=== PATIENT | male | born 1990 | race Caucasian/White ===

== ENCOUNTER 2019-01-13 14:18 | Emergency (ER) | payer OTHER, SELFPAY ==
[2019-01-13 14:28] VITALS: BP 100/57; PULSE 82; RESP 18; TEMP 36.7; O2SAT 98; BMI 22.0
--- NOTE | 2019-01-13 15:58 | ED.BACK ---
HPI - Back Pain/Injury General Chief Complaint: Back Pain/Injury Stated Complaint: hurt back at work Time Seen by Provider: 01/13/19 15:24 Source: patient Mode of arrival: ambulatory Limitations: no limitations History of Present Illness HPI Narrative: This is a 28-year-old male who comes to the emergency department with complaint of back pain patient states it started yesterday. Patient works installing insulation and he states he was picking up a bag of insulation lift it twisted and then felt pain in his midthoracic back. Patient states the bags way about 35 lb he states that he does this frequently and very repetitive motion. He has had some back discomfort in the past but this is worse than normal. Patient states that he tried some ibuprofen at home without resolution of symptoms. He states the pain sort of radiates around to the front and he still very tight and spasm me in his muscles particularly in the chest and side. Patient states movement particularly rotation is worse. He has not had any fevers, no cold cough or congestion. It is painful for her to take a deep inspiration. He has felt a little nauseated with pain has strong. No vomiting, no other diarrhea or constipation, no black or bloody stools. No urinary or fecal incontinence. No numbness, weakness or tingling in his extremities. Patient states he is otherwise healthy, denies any prior surgeries. No allergies to medications. Related Data Previous Rx's Medication Instructions Recorded diazepam [Valium] 2 mg PO TID-QID PRN #5 tab 01/13/19 meloxicam [Mobic] 7.5 mg PO BID #14 tab 01/13/19 Allergies Allergy/AdvReac Type Severity Reaction Status Date / Time No Known Drug Allergies Allergy Verified 01/13/19 14:32 Review of Systems Review of Systems ROS Unobtainable: All systems reviewed & are unremarkable except as noted in HPI and below Constitutional Denies body ache(s), Denies chills and Denies fever(s) Cardiovascular Denies chest pain, Denies edema, Denies dyspnea and Denies dyspnea on exertion Respiratory Denies chest congestion, Denies cough, Denies hemoptysis, Denies excessive phlegm production, Reports pain on inspiration, Denies pain with cough, Denies dyspnea, Denies dyspnea on exertion and Denies wheezing Gastrointestinal Gastrointestinal: Denies abdominal pain, Denies change in bowel habits, Denies fecal incontinence, Denies diarrhea, Reports nausea (With severe pain) and Denies vomiting Genitourinary Denies flank pain, Denies urinary frequency, Denies urinary incontinence and Denies urinary urgency Musculoskeletal Denies abnormal gait, Reports back pain (Thoracic), Denies muscle weakness, Denies numbness, Denies radiating pain into limb, Reports stiffness and Denies tingling Integumentary/Breasts Denies erythema and Denies rash Neurologic Denies abnormal gait, Denies numbness and Denies tingling Allergic/Immunologic Denies wheezing PFSH Social History Smoking Status: Current every day smoker Social History Smoking Status: Current every day smoker substance use type: does not use Exam Narrative Exam Narrative: GENERAL: Alert and oriented x three, thin, well-appearing male in mild distress. HEENT: Head normocephalic, atraumatic, EOMI, pupils reactive, face symmetric, moist mucous membranes NECK: Supple, full range of motion CARDIOVASCULAR: Regular rate and rhythm without murmurs, rubs or gallops. RESPIRATORY: Breath sounds equal bilaterally, no wheezes rales or rhonchi. ABDOMEN: Soft, nontender. Normoactive bowel sounds all 4 quadrants. No guarding or rebound, rigidity, no mass : No CVA tenderness BACK: No cervical, thoracic or lumbar vertebral point tenderness. Patient has some muscle spasm and tenderness radiating from the upper thoracic and around. No rashes or skin changes. Patient has normal range of motion, slightly decreased with rotation. Patient's gait is normal. Rectal exam is deferred. Muscle strength is 5/5 in lower extremities, 5/5 muscle strength in upper and lower extremities. EXTREMITIES: Normal range of motion, no clubbing or edema. Neurovascularly intact NEUROLOGICAL: Cranial nerves II through XII grossly intact. Moving all extremities SKIN: Warm, dry, no petechiae, no rashes or lesions. Initial Vital Signs Initial Vital Signs: Vital Signs Temperature 98.1 F 01/13/19 14:28 Pulse Rate 82 01/13/19 14:28 Respiratory Rate 18 01/13/19 14:28 Blood Pressure 100/57 L 01/13/19 14:28 Pulse Oximetry 98 01/13/19 14:28 Course Orders Ordered: Discontinued Medications Ketorolac Tromethamine (Toradol) 60 mg IM NOW ONE Stop: 01/13/19 16:26 Last Admin: 01/13/19 16:34 Dose: 60 mg Vital Signs - 8 hr 01/13/19 14:28 01/13/19 16:48 Temperature 98.1 F 98.3 F Pulse Rate 82 63 Respiratory Rate 18 18 Blood Pressure 100/57 L Blood Pressure [Right Arm] 106/56 L Pulse Oximetry 98 99 MDM - Back Pain/Injury MDM Narrative Medical decision making narrative: Patient does not have any red flag symptoms. Has a clear exacerbating factor that is the likely cause of his back pain. Plan for rest, NSAIDs, muscle relaxant as needed and re-evaluation as needed. Discussed with patient's signs and symptoms to watch for reasons to return Discharge Plan Departure Patient Disposition: Home Clinical Impression: Back pain, thoracic Qualifiers: Chronicity: acute Back pain laterality: right Qualified Code(s): M54.6 - Pain in thoracic spine Discharge Date/Time: 01/13/19 16:52 Interventions: ED Discharge Assessment Last Done: 01/13/19 16:52 Instructions: DI for Thoracic Back Pain Activity Restrictions/Additional Instructions: Follow-up in the next 5-7 days if your symptoms are not improving. Continue Mobic every 12 hr as needed for pain. You may take Tylenol up to a 1000 mg every 8 hr as needed. Take Valium 1 tablet every 6-8 hours as needed for muscle spasm. This medication can make you sleepy so do not drive, perform hazards activities or make any major decisions while taking it. Return to the emergency department for fevers greater than 100.4, rapidly worsening pain, new weakness, numbness, loss of bowel or bladder control, persistent vomiting, new abdominal pain, shortness of breath or other new or concerning symptoms. Prescriptions: New meloxicam [Mobic] 7.5 mg tablet 7.5 mg PO BID Qty: 14 RF: 0 diazepam [Valium] 2 mg tablet 2 mg PO TID-QID PRN (Reason: muscle spasm) Qty: 5 RF: 0 Stand Alone Forms: Work Release Note
[2019-01-13] MEDS: KETOROLAC 60 MG/2 ML VIAL IM (16:34)
[2019-01-13 16:48] VITALS: BP 106/56; PULSE 63; RESP 18; TEMP 36.8; O2SAT 99
== END 2019-01-13 16:52 | disposition home or self-care (01) ==
PROVIDERS: Emergency Provider Emergency Medicine
DX: M54.6 Pain in thoracic spine (principal)
CPT/HCPCS: 99282; 99283; J1885

== ENCOUNTER → 2021-08-24 13:17 | Outpatient (CLI) | payer OTHER, SELFPAY ==
--- NOTE | 2021-08-24 | DI.RAD.S_ITS ---
PROCEDURE: XR CERVICAL SPINE 4V OR 5V INDICATIONS: pain in right wrist/neck/low back TECHNIQUE: 5 views of the cervical spine were acquired. COMPARISON: None. FINDINGS: Bones: No fractures or dislocations to the T1 level. No suspicious bony lesions. There is straightening of normal cervical lordosis with gentle reversal centered at C4-5. There is decreased range of motion between flexion and extension, with preserved normal bony alignment. There are degenerative changes of the lower cervical spine with disc space loss and degenerative endplate changes most pronounced at C5-6. Soft tissues: Prevertebral soft tissues are normal in thickness. IMPRESSION: Cervical spine without acute fracture or malalignment. Cervical spondylosis at C5-6. Straightening of normal cervical lordosis likely related to positioning and/or concurrent muscle spasms. There is decreased range of motion on flexion extension views. Dictated by: Milton Fernando M.D. on 08/24/2021 at 14:41 Approved by: Milton Fernando M.D. on 08/24/2021 at 14:45
--- NOTE | 2021-08-24 | DI.RAD.S_ITS ---
PROCEDURE: XR LUMBAR SPINE MIN 4V INDICATIONS: back pain TECHNIQUE: 5 views of the lumbar spine acquired, including flexion and extension views. COMPARISON: None. FINDINGS: Bones: 5 nonrib-bearing vertebrae are present. There is normal bony alignment. No vertebral body compression fractures. No suspicious bony lesions. Soft tissues: Overlying bowel gas pattern is normal. No suspicious soft tissue calcifications. Flexion/extension: There is normal range of motion, with preserved normal alignment. IMPRESSION: Negative lumbar spine radiographic series. Dictated by: Milton Fernando M.D. on 08/24/2021 at 14:39 Approved by: Milton Fernando M.D. on 08/24/2021 at 14:40
--- NOTE | 2021-08-24 | DI.RAD.S_ITS ---
PROCEDURE: XR THORACIC SPINE 3V INDICATIONS: back pain TECHNIQUE: 3 views of the thoracic spine were acquired. COMPARISON: None. FINDINGS: Bones: No fractures or dislocations. No suspicious bony lesions. 12 pairs of ribs are noted, and appear intact where visualized. Soft tissues: No paravertebral stripe thickening. IMPRESSION: Thoracic spine without acute radiographic abnormalities. No radiographic evidence for significant thoracic spondylosis. Dictated by: Milton Fernando M.D. on 08/24/2021 at 14:45 Approved by: Milton Fernando M.D. on 08/24/2021 at 14:46
--- NOTE | 2021-08-24 | DI.RAD.S_ITS ---
PROCEDURE: XR WRIST RT MIN 3V INDICATIONS: pain in right wrist/neck/low back TECHNIQUE: 4 views of the wrist were acquired. COMPARISON: None. FINDINGS: Bones: No fractures or dislocations. No suspicious bony lesions. Scaphoid view: Scaphoid appears intact. Scapholunate interval is maintained. Soft tissues: No suspicious soft tissue calcifications. IMPRESSION: Right wrist without acute radiographic abnormalities. If there are persistent symptoms or clinical suspicion for pathology, then repeat radiographs or advanced imaging (CT, MRI or bone scan) may be considered for further evaluation. Dictated by: Milton Fernando M.D. on 08/24/2021 at 14:45 Approved by: Milton Fernando M.D. on 08/24/2021 at 14:45
== END ==
PROVIDERS: Referring Provider Chiropractor; Visit Provider Chiropractor
DX: S13.100A Subluxation of unspecified cervical vertebrae, initial encounter (principal); S23.100 Subluxation of unspecified thoracic vertebra; S33.100A Subluxation of unspecified lumbar vertebra, initial encounter; S13.4XXA Sprain of ligaments of cervical spine, initial encounter; S23.3XXA Sprain of ligaments of thoracic spine, initial encounter; S33.5XXA Sprain of ligaments of lumbar spine, initial encounter; M47.812 Spondylosis without myelopathy or radiculopathy, cervical region; M25.531 Pain in right wrist
CPT/HCPCS: 72050; 72070; 72110; 73110